=== PATIENT | male | born 2000 | race Caucasian/White ===

== ENCOUNTER 2020-11-19 12:27 | Emergency (ER) | payer BC ==
[~2020-11-19] VITALS: Ht 180.3 cm; Wt 111.1 kg
[2020-11-19] MEDS ORDERED: CEPHALEXIN500 M1 PO (14:43)
== END 2020-11-19 14:57 | disposition home or self-care (01) ==
LOC: ED 12:27
DX: S71.111A Laceration without foreign body, right thigh, initial encounter (principal); W26.0XXA Contact with knife, initial encounter; Y93.89 Activity, other specified; Y92.89 Other specified places as the place of occurrence of the external cause; Y99.8 Other external cause status